=== PATIENT | female | born 1950 | race Caucasian/White ===

== ENCOUNTER → 2020-04-25 | Outpatient (CLI) | payer MEDICARE | END | disposition home or self-care (01) | LOC: COVID19 14:09 | PROVIDERS: ATTEND Family Medicine | DX: Z20.828 Contact with and (suspected) exposure to other viral communicable diseases (principal) ==

== ENCOUNTER → 2021-01-17 | Outpatient (CLI) | payer MEDICARE | END | disposition home or self-care (01) | LOC: COVID19 15:45 | PROVIDERS: ATTEND Internal Medicine | DX: U07.1 COVID-19 (principal) ==

== ENCOUNTER 2021-09-10 00:34 | Emergency (ER) | payer MEDICARE ==
[~2021-09-10] VITALS: Ht 167.6 cm; Wt 77.1 kg
== END 2021-09-10 03:31 | disposition home or self-care (01) ==
LOC: ED 00:34
DX: S01.01XA Laceration without foreign body of scalp, initial encounter (principal); Z90.710 Acquired absence of both cervix and uterus; W18.39XA Other fall on same level, initial encounter; Y93.89 Activity, other specified; Y92.89 Other specified places as the place of occurrence of the external cause; Y99.8 Other external cause status

== ENCOUNTER 2024-07-01 18:59 | Emergency (ER) | payer MEDICARE ==
[~2024-07-01] VITALS: Ht 167.6 cm; Wt 68.0 kg
[2024-07-01] MEDS ORDERED: OMEPRAZOLE MAGN20 MG PO (20:14)
[2024-07-01] MEDS ORDERED: Coumadin5 MG PO (20:14)
[2024-07-01] MEDS ORDERED: SIMVASTATIN40 MG PO (20:14)
[2024-07-01] MEDS ORDERED: BUPROPION HYDR150 M3 PO (20:14)
[2024-07-01] MEDS ORDERED: Acetaminophen/Oxycodone 5 MG/325 MG TABLET PO ONE ×2 (20:45→22:50)
[2024-07-01] MEDS ORDERED: OXYCODONE-ACET1 EAC3 PO (22:52)
== END 2024-07-01 23:23 | disposition home or self-care (01) ==
LOC: ED 18:59
DX: S62.112A Displaced fracture of triquetrum [cuneiform] bone, left wrist, initial encounter for closed fracture (principal); E78.5 Hyperlipidemia, unspecified; K21.9 Gastro-esophageal reflux disease without esophagitis; F32.A Depression, unspecified; Z79.01 Long term (current) use of anticoagulants; Z79.899 Other long term (current) drug therapy; Z90.711 Acquired absence of uterus with remaining cervical stump; W18.09XA Striking against other object with subsequent fall, initial encounter; Y93.89 Activity, other specified; Y92.89 Other specified places as the place of occurrence of the external cause; Y99.8 Other external cause status